=== PATIENT | male | born 1965 | race Caucasian/White ===

== ENCOUNTER → 2019-09-25 09:52 | Outpatient (BNVA) | payer MEDICARE, BC, SELFPAY | PROVIDERS: Family Provider Family Medicine; PCP Family Medicine; Visit Provider Specialist | DX: G24.3 Spasmodic torticollis (principal); F17.210 Nicotine dependence, cigarettes, uncomplicated | CPT/HCPCS: 64616; J0585 ==

== ENCOUNTER → 2019-10-16 13:42 | Outpatient (BNVA) | payer MEDICARE, BC, SELFPAY | PROVIDERS: Family Provider Family Medicine; PCP Family Medicine; Visit Provider Nurse Practitioner | DX: F43.12 Post-traumatic stress disorder, chronic (principal) | CPT/HCPCS: 99213 ==

== ENCOUNTER 2019-11-11 11:00 | Day surgery (SDC) | payer MEDICARE, BC, SELFPAY ==
[2019-11-10 11:05] VITALS: BMI 35.3
== END 2019-11-11 12:00 | disposition home or self-care (01) ==
LOC: GILAB 04-27 12:13
PROVIDERS: Family Provider Family Medicine; PCP Nurse Practitioner Family; Visit Provider Surgery
PROC: 0DJD8ZZ Inspection of Lower Intestinal Tract, Via Natural or Artificial Opening Endoscopic (ICD-10-PCS; CPT 45378; principal; 2019-11-11 11:00)
DX: G89.29 Other chronic pain (principal); M54.2 Cervicalgia; M54.5 Low back pain; Z79.891 Long term (current) use of opiate analgesic; Z71.6 Tobacco abuse counseling
CPT/HCPCS: 99214; J0171; J2704; J7030

== ENCOUNTER → 2019-12-19 07:29 | Outpatient (BNVA) | payer MEDICARE, BC, SELFPAY | PROVIDERS: Family Provider Family Medicine; PCP Nurse Practitioner Family; Visit Provider Nurse Practitioner | DX: F43.12 Post-traumatic stress disorder, chronic (principal) | CPT/HCPCS: 99213 ==

== ENCOUNTER → 2020-01-01 10:08 | Outpatient (BNVA) | payer MEDICARE, BC, SELFPAY | PROVIDERS: Family Provider Family Medicine; PCP Nurse Practitioner Family; Visit Provider Specialist | DX: G24.3 Spasmodic torticollis (principal); M54.2 Cervicalgia; F17.210 Nicotine dependence, cigarettes, uncomplicated | CPT/HCPCS: 64616; 64642; J0585 ==

== ENCOUNTER → 2020-02-12 14:15 | Outpatient (BNVA) | payer MEDICARE, BC, SELFPAY | PROVIDERS: Family Provider Family Medicine; PCP Nurse Practitioner Family; Visit Provider Nurse Practitioner | DX: G89.29 Other chronic pain (principal); M54.2 Cervicalgia; M54.5 Low back pain; F17.210 Nicotine dependence, cigarettes, uncomplicated; Z79.891 Long term (current) use of opiate analgesic | CPT/HCPCS: 99213; 99214 ==

== ENCOUNTER → 2020-03-25 08:14 | Outpatient (BNVA) | payer MEDICARE, BC, SELFPAY | PROVIDERS: Family Provider Family Medicine; PCP Nurse Practitioner Family; Visit Provider Specialist | DX: G24.3 Spasmodic torticollis (principal); F17.210 Nicotine dependence, cigarettes, uncomplicated | CPT/HCPCS: 64616; J0585 ==

== ENCOUNTER → 2020-04-16 09:48 | Outpatient (BNVA) | payer MEDICARE, BC, SELFPAY | PROVIDERS: Family Provider Family Medicine; PCP Nurse Practitioner Family; Visit Provider Nurse Practitioner | DX: G89.29 Other chronic pain (principal); M54.2 Cervicalgia; M54.41 Lumbago with sciatica, right side; F17.210 Nicotine dependence, cigarettes, uncomplicated; Z79.891 Long term (current) use of opiate analgesic; Z71.6 Tobacco abuse counseling | CPT/HCPCS: 99213 ==

== ENCOUNTER → 2020-05-03 08:10 | Outpatient (BNVA) | payer MEDICARE, BC, SELFPAY | PROVIDERS: Family Provider Family Medicine; PCP Nurse Practitioner Family; Visit Provider Nurse Practitioner | DX: F43.12 Post-traumatic stress disorder, chronic (principal) | CPT/HCPCS: 99213 ==

== ENCOUNTER → 2020-06-17 08:17 | Outpatient (BNVA) | payer MEDICARE, OTHER, SELFPAY | PROVIDERS: Family Provider Family Medicine; PCP Nurse Practitioner Family; Visit Provider Specialist | DX: G24.3 Spasmodic torticollis (principal); F17.210 Nicotine dependence, cigarettes, uncomplicated | CPT/HCPCS: 64616; J0585 ==

== ENCOUNTER → 2020-07-14 10:23 | Outpatient (BNVA) | payer MEDICARE, BC, SELFPAY | PROVIDERS: Family Provider Family Medicine; PCP Nurse Practitioner Family; Visit Provider Anesthesiology | DX: G89.29 Other chronic pain (principal); M54.2 Cervicalgia; G24.3 Spasmodic torticollis; M54.5 Low back pain; F17.210 Nicotine dependence, cigarettes, uncomplicated; Z79.891 Long term (current) use of opiate analgesic; Z71.6 Tobacco abuse counseling | CPT/HCPCS: 99214 ==

== ENCOUNTER → 2020-07-23 07:33 | Outpatient (BNVA) | payer MEDICARE, BC, SELFPAY | PROVIDERS: Family Provider Family Medicine; PCP Nurse Practitioner Family; Visit Provider Nurse Practitioner | DX: F43.12 Post-traumatic stress disorder, chronic (principal) | CPT/HCPCS: 99213 ==

== ENCOUNTER → 2020-09-07 09:41 | Outpatient (BNVA) | payer MEDICARE, BC, SELFPAY | PROVIDERS: Family Provider Family Medicine; PCP Nurse Practitioner Family; Visit Provider Nurse Practitioner | DX: M54.2 Cervicalgia (principal); M54.5 Low back pain; G89.29 Other chronic pain; G24.3 Spasmodic torticollis; F17.210 Nicotine dependence, cigarettes, uncomplicated; Z79.891 Long term (current) use of opiate analgesic; Z71.6 Tobacco abuse counseling | CPT/HCPCS: 99213 ==

== ENCOUNTER → 2020-09-16 08:50 | Outpatient (BNVA) | payer MEDICARE, BC, SELFPAY | PROVIDERS: Family Provider Family Medicine; PCP Nurse Practitioner Family; Visit Provider Specialist | DX: G24.3 Spasmodic torticollis (principal); F17.210 Nicotine dependence, cigarettes, uncomplicated | CPT/HCPCS: 64616; J0585 ==

== ENCOUNTER → 2020-10-20 07:50 | Outpatient (BNVA) | payer MEDICARE, BC, SELFPAY | PROVIDERS: Family Provider Family Medicine; PCP Nurse Practitioner Family; Visit Provider Nurse Practitioner | DX: F43.12 Post-traumatic stress disorder, chronic (principal); G43.909 Migraine, unspecified, not intractable, without status migrainosus | CPT/HCPCS: 99214 ==

== ENCOUNTER → 2020-11-02 09:45 | Outpatient (BNVA) | payer MEDICARE, BC, SELFPAY | PROVIDERS: Family Provider Family Medicine; PCP Nurse Practitioner Family; Visit Provider Nurse Practitioner | DX: G89.29 Other chronic pain (principal); M54.5 Low back pain; M54.2 Cervicalgia; G24.3 Spasmodic torticollis; F17.210 Nicotine dependence, cigarettes, uncomplicated; Z79.891 Long term (current) use of opiate analgesic; Z71.6 Tobacco abuse counseling | CPT/HCPCS: 99213; 99214 ==

== ENCOUNTER → 2020-12-09 09:42 | Outpatient (BNVA) | payer MEDICARE, BC, SELFPAY | PROVIDERS: Family Provider Family Medicine; PCP Nurse Practitioner Family; Visit Provider Specialist | DX: G24.3 Spasmodic torticollis (principal); F17.210 Nicotine dependence, cigarettes, uncomplicated | CPT/HCPCS: 64616; J0585 ==

== ENCOUNTER → 2020-12-29 09:54 | Outpatient (BNVA) | payer MEDICARE, BC, SELFPAY | PROVIDERS: Family Provider Family Medicine; PCP Nurse Practitioner Family; Visit Provider Nurse Practitioner | DX: G89.29 Other chronic pain (principal); M54.5 Low back pain; M54.2 Cervicalgia; G24.3 Spasmodic torticollis; F17.210 Nicotine dependence, cigarettes, uncomplicated; Z79.891 Long term (current) use of opiate analgesic; Z71.6 Tobacco abuse counseling | CPT/HCPCS: 99213; 99214 ==

== ENCOUNTER → 2021-01-18 10:13 | Outpatient (BNVA) | payer MEDICARE, BC, SELFPAY | PROVIDERS: Family Provider Family Medicine; PCP Nurse Practitioner Family; Visit Provider Nurse Practitioner | DX: F43.12 Post-traumatic stress disorder, chronic (principal) | CPT/HCPCS: 99214 ==

== ENCOUNTER → 2021-03-03 09:52 | Outpatient (BNVA) | payer MEDICARE, BC, SELFPAY | PROVIDERS: Family Provider Family Medicine; PCP Nurse Practitioner Family; Visit Provider Specialist | DX: G24.3 Spasmodic torticollis (principal); F17.210 Nicotine dependence, cigarettes, uncomplicated | CPT/HCPCS: 64616; J0585 ==

== ENCOUNTER → 2021-03-10 10:32 | Outpatient (BNVA) | payer MEDICARE, BC, SELFPAY | PROVIDERS: Family Provider Family Medicine; PCP Nurse Practitioner Family; Visit Provider Nurse Practitioner | DX: G89.29 Other chronic pain (principal); M54.5 Low back pain; M54.2 Cervicalgia; G24.3 Spasmodic torticollis; F17.210 Nicotine dependence, cigarettes, uncomplicated; Z79.891 Long term (current) use of opiate analgesic; Z71.6 Tobacco abuse counseling | CPT/HCPCS: 99213; 99214 ==

== ENCOUNTER 2021-03-16 09:46 | Outpatient (CLI) | payer MEDICARE, BC, SELFPAY ==
--- NOTE | 2021-03-16 09:52 | US_ITS ---
WS: [id number] THYROID ULTRASOUND HISTORY: ENLARGED THYROID COMPARISON: None available. Right lobe: 1.6 cm x 1.4 cm x 4.9 cm (w x ap x l). Volume: 5.6 cm3. There is a small cyst measuring 5 x 3.5 mm in the mid RIGHT thyroid. No suspicious or dominant nodule s. No microcalcifications. Minimal enlargement. Left lobe: 1.5 cm x 1.4 cm x 4.2 cm (w x ap x l). Volume: 4.7 cm3. Normal size and echotexture. No significant or dominant nodules are present. Isthmus: 0.3 cm. US/US thyroid 60334 IMPRESSION: TI-RADS 1. Recommendation: Benign, no further imaging necessary.
== END 2021-03-16 09:47 | disposition home or self-care (01) ==
LOC: RAD 09:48
PROVIDERS: PCP Nurse Practitioner Family; Visit Provider Nurse Practitioner Family
DX: E04.9 Nontoxic goiter, unspecified (principal)
CPT/HCPCS: 76536

== ENCOUNTER → 2021-04-19 08:15 | Outpatient (BNVA) | payer MEDICARE, BC, SELFPAY | PROVIDERS: PCP Nurse Practitioner Family; Visit Provider Nurse Practitioner | DX: F43.12 Post-traumatic stress disorder, chronic (principal) | CPT/HCPCS: 99214 ==

== ENCOUNTER → 2021-05-05 15:05 | Outpatient (BNVA) | payer MEDICARE, BC, SELFPAY | PROVIDERS: PCP Nurse Practitioner Family; Visit Provider Nurse Practitioner | DX: G89.29 Other chronic pain (principal); M54.5 Low back pain; M54.2 Cervicalgia; G24.3 Spasmodic torticollis; F17.210 Nicotine dependence, cigarettes, uncomplicated; Z79.891 Long term (current) use of opiate analgesic; Z71.6 Tobacco abuse counseling | CPT/HCPCS: 99213; 99214 ==

== ENCOUNTER → 2021-06-02 11:27 | Outpatient (BNVA) | payer MEDICARE, BC, SELFPAY | PROVIDERS: PCP Nurse Practitioner Family; Visit Provider Specialist | DX: G24.3 Spasmodic torticollis (principal) | CPT/HCPCS: 64616; J0585 ==

== ENCOUNTER → 2021-06-22 07:31 | Outpatient (BNVA) | payer MEDICARE, BC, SELFPAY | PROVIDERS: PCP Nurse Practitioner Family; Visit Provider Social Worker | DX: F43.12 Post-traumatic stress disorder, chronic (principal) | CPT/HCPCS: 90834 ==

== ENCOUNTER → 2021-07-12 10:11 | Outpatient (BNVA) | payer MEDICARE, BC, SELFPAY | PROVIDERS: PCP Nurse Practitioner Family; Visit Provider Anesthesiology | DX: G89.29 Other chronic pain (principal); M54.2 Cervicalgia; G24.3 Spasmodic torticollis; F17.210 Nicotine dependence, cigarettes, uncomplicated; Z79.891 Long term (current) use of opiate analgesic; Z71.6 Tobacco abuse counseling | CPT/HCPCS: 99214 ==

== ENCOUNTER → 2021-07-19 14:30 | Outpatient (BNVA) | payer MEDICARE, BC, SELFPAY | PROVIDERS: PCP Nurse Practitioner Family; Visit Provider Nurse Practitioner | DX: F43.12 Post-traumatic stress disorder, chronic (principal) | CPT/HCPCS: 99214 ==

== ENCOUNTER → 2021-08-25 13:03 | Outpatient (BNVA) | payer MEDICARE, BC, SELFPAY | PROVIDERS: PCP Nurse Practitioner Family; Visit Provider Specialist | DX: G24.3 Spasmodic torticollis (principal) | CPT/HCPCS: 64616; J0585 ==

== ENCOUNTER → 2021-09-08 10:44 | Outpatient (BNVA) | payer MEDICARE, BC, SELFPAY | PROVIDERS: PCP Nurse Practitioner Family; Visit Provider Anesthesiology | DX: G89.29 Other chronic pain (principal); M54.50 Low back pain, unspecified; M54.2 Cervicalgia; G24.3 Spasmodic torticollis; F17.210 Nicotine dependence, cigarettes, uncomplicated; Z79.891 Long term (current) use of opiate analgesic | CPT/HCPCS: 99214 ==

== ENCOUNTER → 2021-10-18 08:01 | Outpatient (BNVA) | payer MEDICARE, BC, SELFPAY | PROVIDERS: PCP Nurse Practitioner Family; Visit Provider Nurse Practitioner | DX: G43.909 Migraine, unspecified, not intractable, without status migrainosus (principal) | CPT/HCPCS: 99214 ==

== ENCOUNTER → 2021-11-17 13:16 | Outpatient (BNVA) | payer MEDICARE, BC, SELFPAY | PROVIDERS: PCP Nurse Practitioner Family; Visit Provider Specialist | DX: G24.3 Spasmodic torticollis (principal) | CPT/HCPCS: 64616; J0585 ==

== ENCOUNTER → 2021-12-15 08:27 | Outpatient (BNVA) | payer MEDICARE, BC, SELFPAY | PROVIDERS: PCP Nurse Practitioner Family; Visit Provider Social Worker | DX: F43.12 Post-traumatic stress disorder, chronic (principal) | CPT/HCPCS: 90834 ==

== ENCOUNTER → 2022-01-10 07:16 | Outpatient (BNVA) | payer MEDICARE, BC, SELFPAY | PROVIDERS: PCP Nurse Practitioner Family; Visit Provider Social Worker | DX: F43.12 Post-traumatic stress disorder, chronic (principal) | CPT/HCPCS: 90834 ==

== ENCOUNTER 2022-01-13 12:38 | Outpatient (CLI) | payer MEDICARE, BC, SELFPAY ==
--- NOTE | 2022-01-13 12:52 | CT_ITS ---
WS: [id number] LDCT LUNG CANCER SCREENING HISTORY: HX OF TOBACCO USE TECHNIQUE: Axial imaging performed from the apices to 1 cm below the costophrenic angles. Coronal and sagittal reformats are submitted with axial MIP series. All CT scans at [facility] use at least one of these dose optimization techniques: automated exposure control; mA and/or kV adjustment per patient size (includes targeted exams where dose is matched to clinical indication); or iterativ e reconstruction. DLP: 89.47 mGy.cm DIvol: Mean CTDIvol: 1.60 (mGy) COMPARISON: None available. Diagnostic quality: Satisfactory Lung Nodules: Numerous bilateral small, subcentimeter pulmonary nodules with spiculated margins. Thes e are very ill-defined margins and there are numerous nodules noted in all lobes. Largest nodules keon sure 8 mm in the LEFT lower lobe. No mass or pneumonia. Heart: Normal size heart. No pericardial effusion. Mild coronary artery atherosclerosis. Other findings: Small mediastinal and hilar lymph nodes. Largest lymph node is 10 mm on the RIGHT inf erior paratracheal region. Mild atherosclerosis aorta. Liver appears enlarged. No adrenal mass. Ventral supraumbilical abdominal hernia contains portions of the colon. No obstruction. Moderate degenerative changes throughout the thoracic spine. CT/CT lung screening [id number] IMPRESSION: LUNG-RADS: 4B-Suspicious FOLLOW UP: Chest CT with or without contrast OTHER FINDINGS (S MODIFIER): None. Numerous bilateral subcentimeter pulmonary nodules are slightly spiculated. Met astatic lung disease, septic emboli and inflammatory lung disease should be con sidered. Recommend dedicated chest CT follow-up.
== END 2022-01-13 12:39 | disposition home or self-care (01) ==
LOC: RAD 12:39
PROVIDERS: PCP Nurse Practitioner Family; Visit Provider Nurse Practitioner Family
DX: Z87.891 Personal history of nicotine dependence (principal)
CPT/HCPCS: 71271

== ENCOUNTER → 2022-01-17 07:06 | Outpatient (BNVA) | payer MEDICARE, BC, SELFPAY | PROVIDERS: PCP Nurse Practitioner Family; Visit Provider Nurse Practitioner | DX: F43.12 Post-traumatic stress disorder, chronic (principal); G43.909 Migraine, unspecified, not intractable, without status migrainosus | CPT/HCPCS: 99214 ==

== ENCOUNTER → 2022-02-07 07:32 | Outpatient (BNVA) | payer MEDICARE, BC, SELFPAY | PROVIDERS: PCP Nurse Practitioner Family; Visit Provider Social Worker | DX: F43.12 Post-traumatic stress disorder, chronic (principal) | CPT/HCPCS: 90834 ==

== ENCOUNTER → 2022-02-09 11:36 | Outpatient (BNVA) | payer MEDICARE, BC, SELFPAY | PROVIDERS: PCP Nurse Practitioner Family; Visit Provider Specialist | DX: G24.3 Spasmodic torticollis (principal) | CPT/HCPCS: 64616; J0585 ==

== ENCOUNTER → 2022-02-28 07:35 | Outpatient (BNVA) | payer MEDICARE, BC, SELFPAY | PROVIDERS: PCP Nurse Practitioner Family; Visit Provider Nurse Practitioner | DX: F43.12 Post-traumatic stress disorder, chronic (principal); G43.909 Migraine, unspecified, not intractable, without status migrainosus | CPT/HCPCS: 99214 ==

== ENCOUNTER → 2022-03-02 07:23 | Outpatient (BNVA) | payer MEDICARE, BC, SELFPAY | PROVIDERS: PCP Nurse Practitioner Family; Visit Provider Social Worker | DX: F43.12 Post-traumatic stress disorder, chronic (principal) | CPT/HCPCS: 90832 ==

== ENCOUNTER 2022-04-05 09:57 | Emergency (ER) | payer MEDICARE, BC, SELFPAY ==
[2022-04-05 10:23] VITALS: BP 123/83; PULSE 98; RESP 18; TEMP 35.6; O2SAT 99; BMI 29.1
--- NOTE | 2022-04-05 10:33 | W.ED.MALEGU ---
HPI - Male Genitourinary General: Chief complaint: Urogenital-Male Stated complaint: can't go to bathroom Time Seen by Provider: 04/05/22 10:17 Source: patient Mode of arrival: ambulatory Limitations: no limitations History of Present Illness: 56-year-old male presents emergency room with complaints of abdominal pain and cramping. He has not been able to urinate the last day. He is having increasing discomfort. He had difficulty with bowel movements last few days as well. Onset (ago): minute(s) Duration: constant Location: abdomen Severity: severe Quality: aching Relieving factors: urination Exacerbating factors: none Associated symptoms: Reports urinary retention; Deny discharge, dysuria, fevers/chills, hematuria, nausea, swelling, urinary incontinence, mass or vomiting Review of Systems Const: Denies: fever(s), chills, body aches, change in appetite, fatigue or malaise ENMT: Denies: throat pain, ear or mastoid pain, nasal discharge or nasal congestion Card: Denies: chest pain, edema, dyspnea on exertion or orthopnea Resp: Denies: dyspnea, productive cough or non-productive cough GI: Reports: abdominal pain; Denies: nausea or vomiting : Reports: flank pain, difficulty urinating and oliguria; Denies: dysuria, urinary frequency, urinary urgency, urinary incontinence or hematuria Skin/Breast: Denies: rash or pruritus PFSH ED PFSH: Medical History Blepharospasm Chronic depression Chronic low back pain Encounter for long-term opiate analgesic use Hypertension Incisional hernia Migraines Neck pain on right side Post-traumatic stress disorder, chronic Psychiatric care Smoker Surgical History H/O circumcision H/O colonoscopy 2007 History of colon surgery due to diverticulitis History of colostomy reversal 10/2008 History of incisional hernia repair History of shoulder surgery right x 2 History of tonsillectomy Family History Grandfather Cancer lung Grandmother Cancer oral Other Diabetes Heart disease Myocardial infarction Denies family history of Anesthesia complication Bleeding disorder Social History Smoking and tobacco status: never smoked Second hand smoke exposure: No Alcohol intake: never Lives independently: Yes Marital status: Single Current occupational status: disabled History of recent travel: No Physical Exam Const: COMMON NORMALS: no acute distress GENERAL APPEARANCE: cooperative and comfortable ORIENTATION/CONSCIOUSNESS: Yes awake, Yes oriented to person, Yes oriented to place and Yes oriented to time HENMT: COMMON NORMALS: normocephalic, atraumatic and hearing grossly normal bilaterally HEAD & SCALP: normocephalic and atraumatic Resp: COMMON NORMALS: normal respiratory effort, No retractions, No use of accessory muscles and clear to auscultation bilaterally AUSCULTATION: clear to auscultation bilaterally Cardio: COMMON NORMALS: regular rate, regular rhythm and No murmurs present (Cardio) RATE: regular rate RHYTHM: regular rhythm GI: COMMON NORMALS: Soft to palpation and No hepatosplenomegaly present AUSCULTATION: Yes normoactive bowel sounds PALPATION: Yes Soft to palpation, No Tenderness to palpation present (GI), No Guarding due to palpation present (GI) and Yes No hepatosplenomegaly present Extremity: COMMON NORMALS: normal to inspection, capillary refill normal, no clubbing, cyanosis or edema, no calf tenderness and no pedal edema Neuro: SENSORIUM/ORIENTATION: Yes oriented to person, Yes oriented to place and Yes oriented to time Skin: COMMON NORMALS: no rashes or lesions noted GENERAL SKIN EXAM: no rashes or lesions noted Course Vital Signs: Vital signs: Vital Signs Temperature 96.1 F L 04/05/22 10:23 Pulse Rate 98 04/05/22 10:23 Respiratory Rate 18 04/05/22 10:23 Blood Pressure 123/83 04/05/22 10:23 Pulse Oximetry 99 04/05/22 10:23 Oxygen Delivery Me thod 04/05/22 10:23 MDM - Male Medical Decision Making Symptoms relieved by placement of catheter. Patient has enlarged prostate with inflammation on CT congenital absence of the right kidney. Discharge home with Horne leg bag start tamsulosin and Cipro Medical Records I reviewed the patient's medical records. Lab Data I reviewed the patient's lab results. : 04/05/22 10:45 04/05/22 10:45 Radiology Impressions Abdomen/Pelvis CT 04/05/22 11:37 IMPRESSION: 1. Horne catheter present in a nondistended bladder. 2. Edematous mild prostate enlargement with adjacent periprostatic edema. Consider acute prostatitis. 3. Sigmoid anastomotic site is intact with no abnormality. 4. Multiple abdominal wall hernias. Some of the hernias contain small bowel and some colon with no obstruction. 5. Mild gallbladder hydrops with cholelithiasis. Gallbladder sludge may also be present. No adjacent inflammation and no bile duct dilatation. Gallbladder ultrasound would provide additional information concerning cholelithiasis and sludge. 6. RIGHT kidney is absent. No history of nephrectomy was provided by the patient. Laboratory Results WBC 7.1 10^3/uL (4.0-10.0) 04/05/22 10:45 RBC 5.10 10^6/uL (4.1-5.3) 04/05/22 10:45 Hgb 14.5 g/dL (11.7-16.6) 04/05/22 10:45 Hct 42.9 % (42.0-52.0) 04/05/22 10:45 MCV 84.1 fl (80-94) 04/05/22 10:45 MCH 28.4 pg (28.0-34.0) 04/05/22 10:45 MCHC 33.8 g/dL (30.0-36.0) 04/05/22 10:45 RDW 13.8 % (12.1-15.1) 04/05/22 10:45 Plt Count 187 10^3/cmm (130-400) 04/05/22 10:45 MPV 9.7 fL (7.4-10.4) 04/05/22 10:45 Neut % (Auto) 68.2 % 04/05/22 10:45 Lymph % (Auto) 19.4 % 04/05/22 10:45 Lane % (Auto) 10.3 % 04/05/22 10:45 Eos % (Auto) 1.3 % 04/05/22 10:45 Baso % (Auto) 0.4 % 04/05/22 10:45 Neut # (Auto) 4.86 10^3/uL (1.8-7.7) 04/05/22 10:45 Lymph # (Auto) 1.4 10^3/uL (0.8-4.8) 04/05/22 10:45 Lane # (Auto) 0.7 10^3/uL (0.2-0.9) 04/05/22 10:45 Eos # (Auto) 0.1 10^3/uL (0.0-0.8) 04/05/22 10:45 Baso # (Auto) 0.0 10^3/uL (0.0-0.1) 04/05/22 10:45 Nucleated RBC % (auto) 0 % 04/05/22 10:45 Nucleated RBCs # 0.0 /100WBC 04/05/22 10:45 Sodium 135 mmol/L (136-145) L 04/05/22 10:45 Potassium 3.9 mmol/L (3.5-5.1) 04/05/22 10:45 Chloride 95 mmol/L (98-107) L 04/05/22 10:45 Carbon Dioxide 23 mmol/L (22-29) 04/05/22 10:45 Anion Gap 20.9 (5-19) H 04/05/22 10:45 BUN 24 mg/dL (6-20) H 04/05/22 10:45 Creatinine 1.7 mg/dL (0.7-1.2) H 04/05/22 10:45 GFR Calculation 41.8 mL/min (90-130) L 04/05/22 10:45 Glucose 129 mg/dL (65-115) H 04/05/22 10:45 Calculated Osmolality 286 mOsm/kg (285-295) 04/05/22 10:45 Calcium 9.8 mg/dL (8.5-10.5) 04/05/22 10:45 Urine Color Dark yellow (Yellow) 04/05/22 10:43 Urine Appearance Clear (CLEAR) 04/05/22 10:43 Urine pH 5 (5-7) 04/05/22 10:43 Ur Specific [place] 1.020 (1.005-1.030) 04/05/22 10:43 Urine Protein Trace (Negative) 04/05/22 10:43 Urine Glucose (UA) Norm (Normal) 04/05/22 10:43 Urine Ketones 1+ (Negative) H 04/05/22 10:43 Urine Blood Neg (Negative) 04/05/22 10:43 Urine Nitrate Negative (Negative) 04/05/22 10:43 Urine Bilirubin 1+ (Negative) H 04/05/22 10:43 Urine Urobilinogen Norm mg/dL (Negative) 04/05/22 10:43 Ur Leukocyte Esterase Trace (Negative) H 04/05/22 10:43 Urine RBC 0-4 /hpf (0-2) H 04/05/22 10:43 Urine WBC 0-4 /hpf (0-5) H 04/05/22 10:43 Ur Squamous Epith Cells 0-4 /hpf (0-5) H 04/05/22 10:43 Amorphous Sediment Not Reportable 04/05/22 10:43 Urine Bacteria None /hpf (NONE) 04/05/22 10:43 Hyaline Casts 0-4 /lpf H 04/05/22 10:43 Urine Mucus 1+ /hpf 04/05/22 10:43 Discharge Plan Discharge Patient Disposition: Home Clinical Impression: Acute retention of urine, Prostatitis Condition: Stable Prescriptions: New tamsulosin 0.4 mg capsule 0.4 mg PO DAILY Qty: 30 0RF Cipro 500 mg tablet 500 mg PO Q12H Qty: 20 0RF No Action amlodipine 10 mg tablet 10 mg PO DAILY aspirin [Adult Aspirin Regimen] 81 mg tablet,delayed release (DR/EC) 81 mg PO DAILY Bystolic 10 mg tablet 10 mg PO DAILY losartan 100 mg tablet 100 mg PO DAILY Botox 100 unit recon soln 400 unit IM Q90D metformin 500 mg tablet 1,000 mg PO BID atorvastatin 40 mg tablet 40 mg PO DAILY cyclobenzaprine 10 mg tablet 10 mg PO QID PRN (Reason: muscle spasm) 30 Days Qty: 120 1RF hydrocodone-acetaminophen 10-325 mg tablet 1 tab PO QID PRN (Reason: Pain) Rx Instructions: Fill on or after 10/14/21 lorazepam 0.5 mg tablet 0.5 mg PO BID PRN (Reason: anxiety) Qty: 60 2RF prazosin 2 mg capsule 4 mg PO BEDTIME Qty: 60 2RF topiramate 100 mg tablet 100 mg PO BID Qty: 60 2RF spironolactone 25 mg Tablet 12.5 mg PO DAILY primidone 50 mg tablet 200 mg PO BID gabapentin 600 mg tablet 600 mg PO TID baclofen 10 mg tablet 10 mg PO TID trihexyphenidyl 5 mg tablet 5 mg PO BID Abilify 10 mg tablet 10 mg PO BEDTIME bupropion HCl 150 mg tablet extended release 24 hr 150 mg PO DAILY duloxetine 60 mg capsule,delayed release(DR/EC) 120 mg PO DAILY Discharge Orders: Discharge ED (Routine); Ordered 04/05/22 Ordered By: Mason Boggs Referrals: Vira Ying NP [Primary Care Provider] - Discharge Diet: Usual diet Discharge Activity: Resume usual activity Patient Instructions: Opioid Safety Activity Restrictions/Additional Instructions: Use leg bag until released by urology. Case management will make arrangements for you to have follow-up with urology. Start antibiotics 1 p.o. twice daily for 10 days. Add tamsulosin 1 tablet at at bedtime. Coding Level of Care Code ED Signal Maintainer Helper for Deonte Mera
[2022-04-05 11:01] LABS: Basophils % 0.4 %; Eosinophils # 0.1 10^3/uL (0.0-0.8); Eosinophils % 1.3 %; Hematocrit 42.9 % (42.0-52.0); Hemoglobin 14.5 g/dL (11.7-16.6); Lymphocytes # 1.4 10^3/uL (0.8-4.8); Lymphocytes % 19.4 %; Mean Corpuscular HGB Conc 33.8 g/dL (30.0-36.0); Mean Corpuscular Hemoglobin 28.4 pg (28.0-34.0); Mean Corpuscular Volume 84.1 fl (80-94); Mean Platelet Volume 9.7 fL (7.4-10.4); Monocytes # 0.7 10^3/uL (0.2-0.9); Monocytes % 10.3 %; Neutrophils # 4.86 10^3/uL (1.8-7.7); Neutrophils % 68.2 %; Nucleated Red Blood Cells % 0 %; Platelet Count 187 10^3/cmm (130-400); Red Cell Distribution Width 13.8 % (12.1-15.1); White Blood Count 7.1 10^3/uL (4.0-10.0)
[2022-04-05 11:22] LABS: Anion Gap 20.9 (5-19); Blood Urea Nitrogen 24 mg/dL (6-20); Calcium 9.8 mg/dL (8.5-10.5); Carbon Dioxide 23 mmol/L (22-29); Chloride 95 mmol/L (98-107); Glomerular Filtration Rate 41.8 mL/min (90-130); Glucose 129 mg/dL (65-115); Osmolality Calculated 286 mOsm/kg (285-295); Potassium 3.9 mmol/L (3.5-5.1); Sodium 135 mmol/L (136-145)
[2022-04-05 11:23] LABS: Creatinine Clr Calc Pharmacy 54.6767
--- NOTE | 2022-04-05 11:37 | CT_ITS ---
WS: [id number] CT ABDOMEN AND PELVIS NONCONTRAST HISTORY: urinary retention TECHNIQUE: Imaging performed through the abdomen and pelvis. Coronal and sagittal reformats are submi tted. All CT scans at [facility] use at least one of these dose optimization techniques: auto mated exposure control; mA and/or kV adjustment per patient size (includes targeted exams where dose is matched to clinical indication); or iterative reconstruction. DLP: 1201.22 mGy.cm COMPARISON: None available. Lower thorax: Hyperexpanded emphysematous lung bases. No mass or nodule. Heart normal. No hiatal zafar ia. Liver: Normal size liver. No mass or bile duct dilatation. Gallbladder: Gallbladder is very mildly distended with stones. There is also small amount of layering sludge suspected. No adjacent inflammation. No bile duct dilatation. Pancreas: Normal size and attenuation. Normal pancreatic duct. No pancreatitis or mass. Spleen: Normal size spleen with granulomata. Adrenal glands: Normal RIGHT adrenal gland. Focal thickening of the LEFT adrenal gland measures 12 x 9 mm. Suspect a very small adenoma. Right kidney: RIGHT kidney is not identified. Patient did not provide a history of a prior nephrectom y. No mass at the renal bed. Left kidney: 19 x 28 mm low-attenuation mass from the mid to lower kidney. Renal cyst was previously described in 2014. Aorta: Mild atherosclerosis abdominal aorta with no aneurysm. Multiple abdominal wall hernias are identified. These are both paraumbilical and supraumbilical. Slig ht bulging of the transverse colon beyond the abdominal wall in the RIGHT supraumbilical abdomen. No obstruction. Additional hernias continue into the umbilicus. Hernia at the umbilicus extends bilatera lly through the hernia sac. There are defects to the RIGHT and LEFT of midline each containing small bowel. No obstructive pattern. GI tract: No obstruction. Normal appendix. Large distal colonic diverticula contains inspissated mate rial. Surgical anastomosis in the distal sigmoid is unremarkable. No recurrent mass. No adenopathy. Pelvis: Horne catheter present in minimally distended urinary bladder. There is air in the urinary bl adder from the catheter insertion. Very slight enlargement of the prostate gland. Prostate gland appe ars edematous with adjacent periprosthetic edema. Inguinal canals contain small lymph nodes. Osseous structures: Advanced degenerative disc disease throughout the lower thoracic and lumbar spine s. CT/CT kidney stone [id number] IMPRESSION: 1. Horne catheter present in a nondistended bladder. 2. Edematous mild prostate enlargement with adjacent periprostatic edema. Cons ider acute prostatitis. 3. Sigmoid anastomotic site is intact with no abnormality. 4. Multiple abdominal wall hernias. Some of the hernias contain small bowel an d some colon with no obstruction. 5. Mild gallbladder hydrops with cholelithiasis. Gallbladder sludge may also b e present. No adjacent inflammation and no bile duct dilatation. Gallbladder ul trasound would provide additional information concerning cholelithiasis and slu dge. 6. RIGHT kidney is absent. No history of nephrectomy was provided by the patie nt.
[2022-04-05 11:48] LABS: Blood Urine Neg (Negative); Glucose Urine UA Norm (Normal); Ketones Urine 1+ (Negative); Nitrate Urine Negative (Negative); Protein Urine Trace (Negative); Urine Appearance Clear (CLEAR); Urine Color Dark Yellow (Yellow); pH Urine 5 (5-7)
[2022-04-05 11:49] LABS: Bilirubin Urine 1+ (Negative); Leukocyte Esterase Urine Trace (Negative); Mucus Urine 1+ /hpf; RBC Urine 0-4 /hpf (0-2); Squamous Epithelial Cell Urine 0-4 /hpf (0-5); Urobilinogen Urine Norm (Negative); WBC Urine 0-4 /hpf (0-5)
[2022-04-05 11:50] LABS: Add Urine Culture? No; Hyaline Casts Urine 0-4 /lpf
[2022-04-05] MEDS: HYDROcodone-acetaminophen 5-325 mg Tablet 1 TAB PO (13:59)
[2022-04-05 14:25] VITALS: BP 101/67; PULSE 83; RESP 16; O2SAT 97
--- NOTE | 2022-04-05 14:30 | PC.NURSE ---
Please charge patient for 2 leg bags.
--- NOTE | 2022-04-06 09:09 | DCPLANNER ---
Addendum entered by Kacy Miller 05/02/22 16:37: Patient had a follow up appointment scheduled with urology - patient did attend appointment. Addendum entered by Kacy Miller 04/20/22 12:48: Patient has a follow up appointment scheduled for Sunday, April 26, 2022 at 10:[address] Pappas. Clinic will call patient with appointment information. Original Note: marketing and public relations manager had message to schedule a follow up appointment for patient with urology. Case manger sent patients information to the front office staff at urology. Patients information will be printed and reviewed. Clinic will call patient with appointment information.
== END 2022-04-05 14:30 | disposition home or self-care (01) ==
PROVIDERS: Emergency Provider Family Medicine; PCP Nurse Practitioner Family
DX: R33.9 Retention of urine, unspecified (principal); N41.9 Inflammatory disease of prostate, unspecified; Z79.82 Long term (current) use of aspirin; I10 Essential (primary) hypertension
CPT/HCPCS: 51702; 74176; 80048; 81001; 85025; 99284

== ENCOUNTER → 2022-04-26 09:58 | Outpatient (BNVA) | payer MEDICARE, BC, SELFPAY | PROVIDERS: PCP Nurse Practitioner Family; Visit Provider Nurse Practitioner Family | DX: R33.9 Retention of urine, unspecified (principal); N41.9 Inflammatory disease of prostate, unspecified | CPT/HCPCS: 51700; 99203 ==

== ENCOUNTER → 2022-05-04 11:57 | Outpatient (BNVA) | payer MEDICARE, BC, SELFPAY | PROVIDERS: PCP Registered Nurse; Visit Provider Specialist | DX: G24.3 Spasmodic torticollis (principal) | CPT/HCPCS: 64616; J0585 ==

== ENCOUNTER → 2022-06-19 13:20 | Outpatient (BNVA) | payer MEDICARE, BC, SELFPAY | PROVIDERS: PCP Registered Nurse; Visit Provider Nurse Practitioner Family | DX: N40.1 Benign prostatic hyperplasia with lower urinary tract symptoms (principal); N13.8 Other obstructive and reflux uropathy | CPT/HCPCS: 51741; 51798; 81003; 99213 ==

== ENCOUNTER → 2022-07-27 12:04 | Outpatient (BNVA) | payer MEDICARE, BC, SELFPAY | PROVIDERS: PCP Registered Nurse; Visit Provider Specialist | DX: G24.3 Spasmodic torticollis (principal) | CPT/HCPCS: 64616; J0585 ==

== ENCOUNTER → 2022-11-09 09:47 | Outpatient (BNVA) | payer MEDICARE, SELFPAY | PROVIDERS: PCP Registered Nurse; Visit Provider Nurse Practitioner | DX: Z79.899 Other long term (current) drug therapy (principal) | CPT/HCPCS: 80061; 83036; 83721 ==

== ENCOUNTER → 2023-01-23 12:55 | Outpatient (BNVA) | payer MEDICARE, SELFPAY | PROVIDERS: PCP Registered Nurse; Visit Provider Specialist | DX: G24.3 Spasmodic torticollis (principal) | CPT/HCPCS: 64616; J0585 ==

== ENCOUNTER → 2023-04-26 12:58 | Outpatient (BNVA) | payer MEDICARE, SELFPAY | PROVIDERS: PCP Registered Nurse; Visit Provider Specialist | DX: G24.3 Spasmodic torticollis (principal); F33.1 Major depressive disorder, recurrent, moderate; M54.2 Cervicalgia | CPT/HCPCS: 64616; J0585 ==

== ENCOUNTER → 2023-12-06 14:39 | Outpatient (BNVA) | payer MEDICARE, SELFPAY | PROVIDERS: PCP Registered Nurse; Visit Provider Specialist | DX: G24.3 Spasmodic torticollis (principal); M54.2 Cervicalgia | CPT/HCPCS: 64616; J0585 ==

== ENCOUNTER → 2024-03-06 11:46 | Outpatient (BNVA) | payer MEDICARE, SELFPAY | PROVIDERS: PCP Registered Nurse; Visit Provider Specialist | DX: G24.3 Spasmodic torticollis (principal); M54.2 Cervicalgia | CPT/HCPCS: 64616; J0585 ==

== ENCOUNTER → 2024-06-05 10:55 | Outpatient (BNVA) | payer MEDICARE, SELFPAY | PROVIDERS: PCP Registered Nurse; Visit Provider Specialist | DX: G24.3 Spasmodic torticollis (principal); M54.2 Cervicalgia | CPT/HCPCS: 64616; J0585 ==

== ENCOUNTER → 2024-09-12 11:23 | Outpatient (BNVA) | payer MEDICARE, SELFPAY | PROVIDERS: PCP Registered Nurse; Visit Provider Specialist | DX: G24.3 Spasmodic torticollis (principal); M54.2 Cervicalgia; F17.210 Nicotine dependence, cigarettes, uncomplicated | CPT/HCPCS: 64616; 99406; J0585 ==

== ENCOUNTER → 2024-12-19 10:54 | Outpatient (BNVA) | payer MEDICARE, SELFPAY | PROVIDERS: PCP Registered Nurse; Visit Provider Specialist | DX: G24.3 Spasmodic torticollis (principal) | CPT/HCPCS: 64616; J0585; J9999 ==

== ENCOUNTER → 2025-03-19 11:09 | Outpatient (BNVA) | payer MEDICARE, SELFPAY | PROVIDERS: PCP Registered Nurse; Visit Provider Specialist | DX: G24.3 Spasmodic torticollis (principal) | CPT/HCPCS: 64616; J0585; J9999 ==

== ENCOUNTER → 2025-07-02 08:43 | Outpatient (BNVA) | payer MEDICARE, SELFPAY | PROVIDERS: PCP Registered Nurse; Visit Provider Specialist | DX: G24.3 Spasmodic torticollis (principal) | CPT/HCPCS: 64616; 99213; J0585; J9999 ==